=== PATIENT | male | born 1950 ===

== ENCOUNTER 2022-07-09 16:58 | Inpatient (IN) | payer OTHER, MEDICARE ==
[~2022-07-09] VITALS: Ht 180.3 cm; Wt 72.1 kg
[2022-07-09] MEDS: SENNA 187 MG TABLET PO SCH (21:00)
[2022-07-09] MEDS ORDERED: MELATONIN 3 MG TABLET PO PRN (21:00)
[2022-07-09] MEDS ORDERED: DEXTROSE 50%-WATER 25 GM/50 ML SYRINGE IVP PRN (21:15)
[2022-07-09] MEDS ORDERED: BISACODYL 10 MG RECTAL RECTAL SUPPOSITORY PR PRN (21:15)
[2022-07-09] MEDS ORDERED: INSULIN LISPRO 100 UNITS/ML SQ PRN (21:15)
[2022-07-09 21:28] VITALS: BP 129/61
[2022-07-09] MEDS: DOCUSATE SODIUM 100 MG CAPSULE PO SCH (21:28)
[2022-07-09] MEDS: ACETAMINOPHEN 500 MG TABLET PO PRN (21:28)
[2022-07-09] MEDS: APIXABAN 2.5 MG TABLET PO SCH (21:29)
[2022-07-09] MEDS: METOPROLOL TARTRATE 25 MG TABLET PO SCH (21:29)
[2022-07-09] MEDS ORDERED: ACETAMINOPHEN 325 MG TABLET PO PRN (23:45)
[2022-07-10 06:56] LABS: GLUCOMETER DEV NAME(LOC) 2WR.2B; GLUCOSE,POINT OF CARE 138 MG/DL (70-110)
[2022-07-10 07:35] LABS: BASOPHILS % (AUTO) 0.7 % (0.0-2.0); EOSINOPHILS % (AUTO) 5.5 % (1.0-6.0); HEMATOCRIT 28.8 % (41-53); HEMOGLOBIN 9.6 g/dL (13.5-17.5); LYMPHOCYTES % (AUTO) 23.7 % (22.0-44.0); MEAN CORPUSCULAR HEMOGLOBIN 29.1 pg (26.0-34.0); MEAN CORPUSCULAR HGB CONC 33.4 G/dL (31.0-37.0); MEAN CORPUSCULAR VOLUME 87 fL (80-100); MONOCYTES # (AUTO) 0.4 K/uL (0.1-1.0); MONOCYTES % (AUTO) 10.2 % (2.0-9.0); NEUTROPHILS # (AUTO) 2.5 K/uL (1.8-7.7); NEUTROPHILS % (AUTO) 59.9 % (40.0-70.0); PLATELET COUNT (AUTO) 290 K/uL (150-450); RED CELL DISTRIBUTION WIDTH 15.6 % (11.5-14.5)
[2022-07-10 07:51] LABS: ALANINE AMINOTRANSFERASE 31 U/L (12-78); ALBUMIN 2.7 g/dL (3.4-5.0); ALKALINE PHOSPHATASE 130 U/L (46-116); ANION GAP 7 mmol/L (8-16); ASPARTATE AMINOTRANSFERASE 32 U/L (15-37); BILIRUBIN,TOTAL 0.2 mg/dL (0.1-1.0); CALCIUM, TOTAL 9.2 mg/dL (8.8-10.5); CARBON DIOXIDE 28 mmol/L (22-29); CHLORIDE 103 mmol/L (98-107); CREATININE 0.86 mg/dL (0.60-1.30); GLOMERULAR FILTR. RATE CALC > 60 mL/min (>60); GLUCOSE,RANDOM 155 mg/dL (70-110); POTASSIUM 5.1 mmol/L (3.5-5.1); SODIUM SERUM 138 mmol/L (136-145); TOTAL PROTEIN, SERUM 6.8 g/dL (6.4-8.2); UREA NITROGEN, BLOOD 18 mg/dL (7-18)
[2022-07-10 08:00] VITALS: BP 123/62
[2022-07-10] MEDS: GLIMEPIRIDE 2 MG TABLET PO SCH (08:36)
[2022-07-10] MEDS: DOCUSATE SODIUM 100 MG CAPSULE PO SCH ×2 (08:36→20:57)
[2022-07-10] MEDS: AmLODIPine BESYLATE 5 MG TABLET PO SCH (08:36)
[2022-07-10] MEDS: MetFORMIN HCL 500 MG TABLET PO SCH ×2 (08:37→17:40)
[2022-07-10] MEDS: METOPROLOL TARTRATE 25 MG TABLET PO SCH ×2 (08:37→20:56)
[2022-07-10] MEDS: EZETIMIBE 10 MG TABLET PO SCH (08:37)
[2022-07-10] MEDS: APIXABAN 2.5 MG TABLET PO SCH ×2 (08:37→20:56)
[2022-07-10] MEDS: ASPIRIN 81 MG CHEWABLE TABLET PO SCH (08:37)
[2022-07-10] MEDS: LOSARTAN POTASSIUM 50 MG TABLET PO SCH (08:38)
[2022-07-10] MEDS: ETHYL ALCOHOL 62% ANTISEPTIC NASAL SANITIZER 0.6 ML AMPUL NASAL SCH ×2 (08:45→21:07)
[2022-07-10 12:56] LABS: GLUCOMETER DEV NAME(LOC) 2WR.1C; GLUCOSE,POINT OF CARE 119 MG/DL (70-110)
[2022-07-10 18:46] LABS: GLUCOMETER DEV NAME(LOC) 2WR.2B; GLUCOSE,POINT OF CARE 101 MG/DL (70-110)
[2022-07-10 20:56] VITALS: BP 117/61
[2022-07-10] MEDS: ACETAMINOPHEN 500 MG TABLET PO PRN (20:56)
[2022-07-10] MEDS: OMEGA-3/DHA/EPA/FISH OIL 1,000 MG CAPSULE PO SCH (20:56)
[2022-07-10] MEDS: SENNA 187 MG TABLET PO SCH (20:56)
[2022-07-10] MEDS ORDERED: ETHYL ALCOHOL 62% ANTISEPTIC NASAL SANITIZER 0.6 ML AMPUL NASAL SCH (21:00)
[2022-07-10 22:11] LABS: GLUCOMETER DEV NAME(LOC) 2WR.2B; GLUCOSE,POINT OF CARE 103 MG/DL (70-110)
[2022-07-11] MEDS: FAMOTIDINE 20 MG TABLET PO SCH (06:34)
[2022-07-11 07:30] VITALS: BP 121/58
[2022-07-11] MEDS: MetFORMIN HCL 500 MG TABLET PO SCH ×2 (07:59→16:51)
[2022-07-11] MEDS: GLIMEPIRIDE 2 MG TABLET PO SCH (07:59)
[2022-07-11] MEDS: ETHYL ALCOHOL 62% ANTISEPTIC NASAL SANITIZER 0.6 ML AMPUL NASAL SCH ×2 (07:59→20:09)
[2022-07-11] MEDS: LOSARTAN POTASSIUM 50 MG TABLET PO SCH (08:00)
[2022-07-11] MEDS: DOCUSATE SODIUM 100 MG CAPSULE PO SCH ×2 (08:00→20:08)
[2022-07-11] MEDS: ASPIRIN 81 MG CHEWABLE TABLET PO SCH (08:00)
[2022-07-11] MEDS: AmLODIPine BESYLATE 5 MG TABLET PO SCH (08:01)
[2022-07-11] MEDS: OMEGA-3/DHA/EPA/FISH OIL 1,000 MG CAPSULE PO SCH ×2 (08:01→20:08)
[2022-07-11] MEDS: METOPROLOL TARTRATE 25 MG TABLET PO SCH ×2 (08:01→20:08)
[2022-07-11] MEDS: APIXABAN 2.5 MG TABLET PO SCH ×2 (08:01→20:08)
[2022-07-11] MEDS: EZETIMIBE 10 MG TABLET PO SCH (08:02)
[2022-07-11 10:01] LABS: GLUCOMETER DEV NAME(LOC) 2WR.2B; GLUCOSE,POINT OF CARE 107 MG/DL (70-110)
[2022-07-11] MEDS: ACETAMINOPHEN 500 MG TABLET PO PRN ×2 (12:37→20:07)
[2022-07-11 17:11] LABS: GLUCOMETER DEV NAME(LOC) 2WR.1C; GLUCOSE,POINT OF CARE 93 MG/DL (70-110)
[2022-07-11 17:11] LABS: GLUCOMETER DEV NAME(LOC) 2WR.1C; GLUCOSE,POINT OF CARE 108 MG/DL (70-110)
[2022-07-11] MEDS: SENNA 187 MG TABLET PO SCH (20:10)
[2022-07-11 21:00] VITALS: BP 117/63
[2022-07-11 21:26] LABS: GLUCOMETER DEV NAME(LOC) 2WR.2B; GLUCOSE,POINT OF CARE 104 MG/DL (70-110)
[2022-07-12] MEDS: FAMOTIDINE 20 MG TABLET PO SCH (06:10)
[2022-07-12 06:51] LABS: GLUCOMETER DEV NAME(LOC) 2WR.1C; GLUCOSE,POINT OF CARE 102 MG/DL (70-110)
[2022-07-12 07:40] VITALS: BP 112/60
[2022-07-12] MEDS: GLIMEPIRIDE 2 MG TABLET PO SCH (08:05)
[2022-07-12] MEDS: MetFORMIN HCL 500 MG TABLET PO SCH ×2 (08:06→17:52)
[2022-07-12] MEDS: ETHYL ALCOHOL 62% ANTISEPTIC NASAL SANITIZER 0.6 ML AMPUL NASAL SCH ×2 (08:06→20:16)
[2022-07-12] MEDS: ASPIRIN 81 MG CHEWABLE TABLET PO SCH (08:07)
[2022-07-12] MEDS: APIXABAN 2.5 MG TABLET PO SCH ×2 (08:08→20:16)
[2022-07-12] MEDS: LOSARTAN POTASSIUM 50 MG TABLET PO SCH (08:08)
[2022-07-12] MEDS: OMEGA-3/DHA/EPA/FISH OIL 1,000 MG CAPSULE PO SCH ×2 (08:08→20:16)
[2022-07-12] MEDS: DOCUSATE SODIUM 100 MG CAPSULE PO SCH ×2 (08:08→20:16)
[2022-07-12] MEDS: EZETIMIBE 10 MG TABLET PO SCH (08:10)
[2022-07-12] MEDS: AmLODIPine BESYLATE 5 MG TABLET PO SCH (08:10)
[2022-07-12] MEDS: METOPROLOL TARTRATE 25 MG TABLET PO SCH ×2 (08:10→20:16)
[2022-07-12] MEDS: ACETAMINOPHEN 500 MG TABLET PO PRN ×2 (08:32→20:16)
[2022-07-12 15:46] LABS: GLUCOMETER DEV NAME(LOC) 2WR.1C; GLUCOSE,POINT OF CARE 78 MG/DL (70-110)
[2022-07-12 18:16] LABS: GLUCOMETER DEV NAME(LOC) 2WR.2B; GLUCOSE,POINT OF CARE 89 MG/DL (70-110)
[2022-07-12 20:16] VITALS: BP 96/51
[2022-07-12] MEDS: SENNA 187 MG TABLET PO SCH (20:16)
[2022-07-12 20:41] LABS: GLUCOMETER DEV NAME(LOC) 2WR.1C; GLUCOSE,POINT OF CARE 136 MG/DL (70-110)
[2022-07-12 20:41] LABS: GLUCOMETER DEV NAME(LOC) 2WR.1C; GLUCOSE,POINT OF CARE 64 MG/DL (70-110)
[2022-07-13] MEDS: FAMOTIDINE 20 MG TABLET PO SCH (06:33)
[2022-07-13 06:41] LABS: GLUCOMETER DEV NAME(LOC) 2WR.1C; GLUCOSE,POINT OF CARE 90 MG/DL (70-110)
[2022-07-13 08:10] VITALS: BP 109/59
[2022-07-13] MEDS: GLIMEPIRIDE 2 MG TABLET PO SCH (08:46)
[2022-07-13] MEDS: OMEGA-3/DHA/EPA/FISH OIL 1,000 MG CAPSULE PO SCH ×2 (08:46→20:34)
[2022-07-13] MEDS: AmLODIPine BESYLATE 5 MG TABLET PO SCH (08:46)
[2022-07-13] MEDS: METOPROLOL TARTRATE 25 MG TABLET PO SCH ×2 (08:47→20:35)
[2022-07-13] MEDS: EZETIMIBE 10 MG TABLET PO SCH (08:47)
[2022-07-13] MEDS: APIXABAN 2.5 MG TABLET PO SCH ×2 (08:47→20:35)
[2022-07-13] MEDS: LOSARTAN POTASSIUM 50 MG TABLET PO SCH (08:47)
[2022-07-13] MEDS: MetFORMIN HCL 500 MG TABLET PO SCH ×2 (08:47→18:08)
[2022-07-13] MEDS: DOCUSATE SODIUM 100 MG CAPSULE PO SCH ×2 (08:48→20:29)
[2022-07-13] MEDS: ETHYL ALCOHOL 62% ANTISEPTIC NASAL SANITIZER 0.6 ML AMPUL NASAL SCH ×2 (08:56→20:35)
[2022-07-13] MEDS: ASPIRIN 81 MG CHEWABLE TABLET PO SCH (09:30)
[2022-07-13] MEDS ORDERED: LOSA-382 PO (09:52)
[2022-07-13] MEDS ORDERED: FAMO20 PO (09:52)
[2022-07-13] MEDS ORDERED: ASPI-1450 PO (09:52)
[2022-07-13] MEDS ORDERED: DOCU-385 PO (09:52)
[2022-07-13] MEDS ORDERED: APIX2.5T PO (09:52)
[2022-07-13] MEDS ORDERED: EZET10TA57 PO (09:52)
[2022-07-13] MEDS ORDERED: OMEG-135 PO (09:52)
[2022-07-13] MEDS ORDERED: ACET-3385 PO (09:52)
[2022-07-13] MEDS ORDERED: AMLO-257 PO (09:52)
[2022-07-13] MEDS ORDERED: METF-1211 PO (09:52)
[2022-07-13] MEDS ORDERED: METO25 PO (09:52)
[2022-07-13] MEDS ORDERED: GLIM2 PO (09:52)
[2022-07-13 12:31] LABS: GLUCOMETER DEV NAME(LOC) 2WR.2B; GLUCOSE,POINT OF CARE 91 MG/DL (70-110)
[2022-07-13 18:16] LABS: GLUCOMETER DEV NAME(LOC) 2WR.1C; GLUCOSE,POINT OF CARE 67 MG/DL (70-110)
[2022-07-13 18:17] LABS: GLUCOMETER DEV NAME(LOC) 2WR.1C; GLUCOSE,POINT OF CARE 76 MG/DL (70-110)
[2022-07-13 20:04] VITALS: BP 116/63
[2022-07-13] MEDS: SENNA 187 MG TABLET PO SCH (20:29)
[2022-07-13] MEDS: ACETAMINOPHEN 500 MG TABLET PO PRN (20:43)
[2022-07-13 21:31] LABS: GLUCOMETER DEV NAME(LOC) 2WR.2B; GLUCOSE,POINT OF CARE 98 MG/DL (70-110)
[2022-07-14] MEDS: ACETAMINOPHEN 500 MG TABLET PO PRN ×3 (02:42→15:09)
[2022-07-14] MEDS: FAMOTIDINE 20 MG TABLET PO SCH (06:26)
[2022-07-14 06:46] LABS: GLUCOMETER DEV NAME(LOC) 2WR.2B; GLUCOSE,POINT OF CARE 73 MG/DL (70-110)
[2022-07-14] MEDS: GLIMEPIRIDE 2 MG TABLET PO SCH (08:25)
[2022-07-14] MEDS: METOPROLOL TARTRATE 25 MG TABLET PO SCH (08:25)
[2022-07-14] MEDS: ETHYL ALCOHOL 62% ANTISEPTIC NASAL SANITIZER 0.6 ML AMPUL NASAL SCH (08:25)
[2022-07-14] MEDS: EZETIMIBE 10 MG TABLET PO SCH (08:26)
[2022-07-14] MEDS: ASPIRIN 81 MG CHEWABLE TABLET PO SCH (08:26)
[2022-07-14] MEDS: LOSARTAN POTASSIUM 50 MG TABLET PO SCH (08:26)
[2022-07-14] MEDS: OMEGA-3/DHA/EPA/FISH OIL 1,000 MG CAPSULE PO SCH (08:26)
[2022-07-14] MEDS: MetFORMIN HCL 500 MG TABLET PO SCH (08:27)
[2022-07-14] MEDS: APIXABAN 2.5 MG TABLET PO SCH (08:27)
[2022-07-14] MEDS: AmLODIPine BESYLATE 5 MG TABLET PO SCH (08:27)
[2022-07-14] MEDS: DOCUSATE SODIUM 100 MG CAPSULE PO SCH (08:32)
[2022-07-14 09:15] VITALS: BP 115/59
[2022-07-14 12:36] LABS: GLUCOMETER DEV NAME(LOC) 2WR.2B; GLUCOSE,POINT OF CARE 99 MG/DL (70-110)
== END 2022-07-14 15:45 | disposition home health service (06) | DRG 565 ==
LOC: 2WR 19:32
PROVIDERS: ADMIT Physical Medicine & Rehabilitation; ATTEND Physical Medicine & Rehabilitation
DX: T87.44 Infection of amputation stump, left lower extremity (principal); E46 Unspecified protein-calorie malnutrition; Y83.8 Other surgical procedures as the cause of abnormal reaction of the patient, or of later complication, without mention of misadventure at the time of the procedure; E11.42 Type 2 diabetes mellitus with diabetic polyneuropathy; I10 Essential (primary) hypertension; D64.9 Anemia, unspecified; E11.51 Type 2 diabetes mellitus with diabetic peripheral angiopathy without gangrene; R53.81 Other malaise; I48.91 Unspecified atrial fibrillation; I25.10 Atherosclerotic heart disease of native coronary artery without angina pectoris; Y92.89 Other specified places as the place of occurrence of the external cause; Z89.519 Acquired absence of unspecified leg below knee; Z79.01 Long term (current) use of anticoagulants; Z68.22 Body mass index [BMI] 22.0-22.9, adult
CPT/HCPCS: 80053; 82962; 83036; 85025; 87081; 97110; 97116; 97163; 97166; 97530; 97535; 99366